=== PATIENT | female | born 1935 | race Caucasian/White ===

== ENCOUNTER 2019-06-29 16:19 | Outpatient (CLI) | payer MEDICARE, OTHER, SELFPAY ==
--- NOTE | 2019-06-29 16:33 | CTR_ITS ---
PROCEDURE INFORMATION: Exam: CT Neck With Contrast Exam date and time: 06/29/2019 4:34 PM Age: 83 years old Clinical indication: Neck pain; Additional info: Cervical lymphadenopathy, left sided neck discomfort x 1 week TECHNIQUE: Imaging protocol: Computed tomography images of the neck with intravenous contrast. Total DLP: 659.29 mGy-cm Radiation optimization: All CT scans at this facility use at least one of these dose optimization techniques: automated exposure control; mA and/or kV adjustment per patient size (includes targeted exams where dose is matched to clinical indication); or iterative reconstruction. Contrast material: OMNIPAQUE 300; Contrast volume: 95 ml; Contrast route: ARM; COMPARISON: No relevant prior studies available. FINDINGS: Brain: The industrial equipment wirer space is normal. Visualized portions of the brain and orbits are normal. Nasopharynx: fossa of Rosenmuller is normal. Oropharynx: parapharyngeal space normal. Hypopharynx: Piriform sinus is unremarkable. Larynx: the epiglottis, preepiglottic fat and the aryepiglottic folds are normal. The true cords appear normal. Retropharyngeal space: Unremarkable. Submandibular/Parotid glands: submental and submandibular regions are normal. the carotid and parotid spaces are normal. Thyroid: the thyroid gland, the thoracic inlet, the posterior triangles are normal. Lymph nodes: Unremarkable. No lymphadenopathy. Trachea: Visualized trachea is unremarkable. Lungs: The lung apices are normal. Vasculature: Calcification of the aorta. There is bovine origin of the right common carotid artery and the left common carotid artery-this is a normal variant. Calcifications at the carotid bifurcations bilaterally. Bones/joints: No acute osseous abnormality. Severe degenerative changes within the spine. Soft tissues: Unremarkable. No significant soft tissue swelling. Other findings: precervical space is normal. CT/CT neck w con* [id number] IMPRESSION: 1. Unremarkable CT scan of the neck. 2. Calcifications at the carotid bifurcations bilaterally. 3. Severe degenerative changes within the spine. Radiation Dose CTDIVOL = (mGy): DLP = 659.29 (mGy-cm)
[2019-06-29 17:08] LABS: Blood Urea Nitrogen 16 mg/dL (8-23)
[2019-06-29] MEDS: iohexol 300 mg/mL 100 mL Btl IV (17:27)
== END 2019-06-29 16:20 | disposition home or self-care (01) ==
LOC: RAD 16:24
PROVIDERS: Family Provider Family Medicine; PCP Family Medicine; Visit Provider Family Medicine
DX: R59.0 Localized enlarged lymph nodes (principal); I65.23 Occlusion and stenosis of bilateral carotid arteries
CPT/HCPCS: 36415; 70491; 82565; 84520

== ENCOUNTER 2020-08-06 10:28 | Outpatient (CLI) | payer MEDICARE, OTHER, SELFPAY ==
--- NOTE | 2020-08-06 10:42 | CT_ITS ---
WS: [id number] CTA OF THE CHEST WITH PULMONARY EMBOLISM PROTOCOL TECHNIQUE: High-resolution contrast enhanced CTA of the chest with coronal and sagittal reformatted i mages with pulmonary embolism protocol. MIP images are also reviewed. CLINICAL INFORMATION: DYSPNEA, CHEST PAIN COMPARISON: None. DLP: 714.[address] scans at [facility] use at least one of these dose optimization techniques: automat ed exposure control; mA and/or kV adjustment per patient size (includes targeted exams where dose is matched to clinical indication); or iterative reconstruction. FINDINGS: Proximal main pulmonary arteries are patent. Normal segmental and subsegmental pulmonary arteries. No evidence of pulmonary embolus. Normal caliber thoracic aorta. Aortic calcification. No mediastinal or hilar lymphadenopathy. Coronar y calcification. Mild chronic emphysematous changes. No acute pulmonary infiltrates. No focal consolidation or pleural fluid. Adrenal glands are normal. Small esophageal hiatal hernia. Mild thoracic curve and thoracic kyphosis. Anterior hypertrophic changes in the mid lower thoracic sp ine. Mild chronic appearing compression superior endplate at T12. CT/CT angio chest PE protcl [id number] IMPRESSION: 1. Proximal main pulmonary arteries are normal. No evidence of pulmonary embol us. 2. Mild chronic emphysematous changes. No acute pulmonary infiltrates. No foca l pneumonia. 3. No mediastinal or hilar lymphadenopathy. 4. Small esophageal hiatal hernia. 5. Mild chronic appearing compression superior endplate T12 Notified Dr. Bee's nurse, Megan MAKI, at 08/06/2020 11:32 AM.
[2020-08-06] MEDS: iohexol 350 mg/mL 100 mL Btl IV (10:57)
== END 2020-08-06 10:29 | disposition home or self-care (01) ==
LOC: RADWPI 10:40
PROVIDERS: PCP Family Medicine; Visit Provider Family Medicine
DX: R06.00 Dyspnea, unspecified (principal); R07.9 Chest pain, unspecified; S22.080A Wedge compression fracture of T11-T12 vertebra, initial encounter for closed fracture; X58.XXXA Exposure to other specified factors, initial encounter; K44.9 Diaphragmatic hernia without obstruction or gangrene
CPT/HCPCS: 71275; Q9967

== ENCOUNTER 2020-08-15 14:09 | Outpatient (CLI) | payer MEDICARE, OTHER, SELFPAY ==
--- NOTE | 2020-08-15 14:18 | USCV_ITS ---
RellEvonne Age: 84 Gender: F : 1935 Exam Date: 08/15/2020 14:42 Ordering Phys: Danilo Bee MD Technologist: Anju Alexander [place] [facility] [place]: ISCHEMIC HEART DZ BP: / HR: 77 Rhythm: Sinus Technical Quality: Adequate MEASUREMENTS (Male / Female) Normal Values 2D ECHO LV Diastolic Diameter PLAX 4.2 cm 4.2 - 5.9 / 3.9 - 5.3 cm LV Systolic Diameter PLAX 2.7 cm LV Chamber Size 3.7 cm IVS Diastolic Thickness 0.9 cm 0.6 - 1.0 / 0.6 - 0.9 cm IVS Systolic Thickness 1.5 cm LVPW Diastolic Thickness 1.7 cm 0.6 - 1.0 / 0.6 - 0.9 cm LVPW Systolic Thickness 2.2 cm RV Chamber Size 3.6 cm LVOT Diameter 2.0 cm LV Ejection Fraction 2D Teich 66.5 % LV Ejection Fraction MOD 2C 55.0 % LV Ejection Fraction 2C AL 59.0 % LA Diameter 3.3 cm LA Width 3.2 cm LA Height 4.1 cm RA Width 2.5 cm RA Height 4.1 cm Aorta at Sinotubular Diameter 2.5 cm M-MODE LV Diastolic Diameter MM 4.2 cm 4.2 - 5.9 / 3.9 - 5.3 cm LV Systolic Diameter MM 2.4 cm LV Ejection Fraction MM Teich 75.0 % IVS Diastolic Thickness MM 1.0 cm 0.6 - 1.0 / 0.6 - 0.9 cm IVS Systolic Thickness MM 0.9 cm LVPW Diastolic Thickness MM 0.8 cm 0.6 - 1.0 / 0.6 - 0.9 cm LVPW Systolic Thickness MM 1.2 cm Aortic Annulus Diameter 3.1 cm LA Ao Ratio MM 1.1 MV E Point Septal Separation 0.7 cm DOPPLER AV Peak Velocity 127.3 cm/s LVOT Peak Velocity 108.0 cm/s AV Area Cont Eq vti 2.5 cm squared AV Area Cont Eq pk 2.7 cm squared MV Area PHT 3.7 cm squared Mitral E to A Ratio 1.0 MV E' Velocity 88.0 cm/s TR Peak Velocity 321.9 cm/s TR Peak Gradient 41.5 mmHg TR Mean Velocity 197.8 cm/s TR Mean Gradient 19.5 mmHg TR Velocity Time Integral 98.9 cm TV Peak E Velocity 53.0 cm/s Right Atrial Pressure 3.0 mmHg Pulmonary Artery Systolic Pressu 44.5 mmHg PV Peak Velocity 69.0 cm/s RV Acceleration Time 0.1 s RV Ejection Time 0.4 s RV AcT/ET 0.4 FINDINGS Left Ventricle Normal left ventricular size minimally diminished LV ejection fraction of 50 to 55%. Mild hypokinesia of the septum and anteroseptal segments. Grade I/IV diastolic dysfunction (abnormal relaxation filling pattern), normal to mildly elevated filling pressures. Right Ventricle The right ventricle is normal in size and function. Right Atrium The right atrium is normal in size. Left Atrium The left atrium is normal in size. Mitral Valve Trace mitral valve regurgitation. Aortic Valve Thickened aortic valve. Tricuspid Valve Moderate tricuspid valve regurgitation. Estimated pulmonary artery peak systolic pressure of 45 mmHg Pulmonic Valve Trace pulmonary valve regurgitation. Pericardium Normal pericardium without effusion. Aorta Normal ascending aorta dimension. CONCLUSIONS Normal left ventricular size minimally diminished LV ejection fraction of 50 to 55%. Mild hypokinesia of the septum and anteroseptal segments. Grade I/IV diastolic dysfunction (abnormal relaxation filling pattern), normal to mildly elevated filling pressures. Thickened aortic valve. Moderate tricuspid valve regurgitation. Estimated pulmonary artery peak systolic pressure of 45 mmHg. Trace mitral valve regurgitation. There is no pericardial effusion. There are no intracardiac masses. No previous study is available for comparison. Dr Aj Cool MD [facility] (Electronically Signed) Final Date: 16 August 2020 09:55 S
== END 2020-08-15 14:10 | disposition home or self-care (01) ==
LOC: US 14:12
PROVIDERS: PCP Family Medicine; Visit Provider Family Medicine
DX: Z13.6 Encounter for screening for cardiovascular disorders (principal); R00.1 Bradycardia, unspecified; R06.00 Dyspnea, unspecified; I25.9 Chronic ischemic heart disease, unspecified; I08.3 Combined rheumatic disorders of mitral, aortic and tricuspid valves
CPT/HCPCS: 93306

== ENCOUNTER 2021-04-01 14:22 | Outpatient (CLI) | payer MEDICARE, OTHER, SELFPAY ==
--- NOTE | 2021-04-01 14:37 | XR_ITS ---
WS: [id number] RIGHT HIP HISTORY: HIP JOINT PAIN, RIGHT COMPARISON: None available. Right hip: No acute fracture or dislocation. Mild narrowing of the RIGHT hip joint. Mild osteophytic ridging around the acetabulum. Irregularity along the cortex of the femoral head and the acetabulum f rom loss of cartilage. No destructive bone lesions. Numerous surgical sutures in the RIGHT pelvis. XR/XR hip RT 2-3V wo/w pel* [id number] IMPRESSION: 1. No hip fracture. 2. 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
== END 2021-04-01 14:23 | disposition home or self-care (01) ==
PROVIDERS: PCP Family Medicine; Visit Provider Clinical Nurse Specialist Adult Health
DX: M16.11 Unilateral primary osteoarthritis, right hip (principal)
CPT/HCPCS: 73502

== ENCOUNTER → 2021-10-22 14:24 | Outpatient (BNVA) | payer MEDICARE, SELFPAY | PROVIDERS: PCP Family Medicine; Visit Provider Family Medicine | DX: I10 Essential (primary) hypertension (principal) | CPT/HCPCS: 80048 ==

== ENCOUNTER → 2022-02-09 13:24 | Outpatient (BNVA) | payer MEDICARE, SELFPAY | PROVIDERS: PCP Family Medicine; Visit Provider Family Medicine | DX: E78.5 Hyperlipidemia, unspecified (principal); G47.33 Obstructive sleep apnea (adult) (pediatric); I10 Essential (primary) hypertension; I48.91 Unspecified atrial fibrillation; R42 Dizziness and giddiness; R53.83 Other fatigue | CPT/HCPCS: 80053; 80061; 81000; 82607; 83880; 85025; 86140; 87086 ==

== ENCOUNTER 2022-04-07 14:19 | Outpatient (CLI) | payer MEDICARE, SELFPAY ==
--- NOTE | 2022-04-07 14:43 | XRR_ITS ---
PROCEDURE INFORMATION: Exam: XR Bilateral Hips Exam date and time: 04/07/2022 2:48 PM Age: 86 years old Clinical indication: Pain and injury or trauma; Fall; Blunt trauma (contusions or hematomas); Bilateral; Hip pain; Injury date: 04/02/22; Patient HX: HX of uterine cancer and melanoma; Additional info: Hip and back pain TECHNIQUE: Imaging protocol: Radiologic exam of the bilateral hips. Views: 2 views of hips with pelvis when performed. COMPARISON: CR XR hip RT 2-3V wo/w pel* [id number] 04/01/2021 2:45 PM FINDINGS: Bones/joints: Negative for acute right hip bony abnormality No acute fracture. Soft tissues: Metallic surgical clips seen in the pelvis XR/XR hip BI 2V wo/w pel [id number] IMPRESSION: 1. No acute bone abnormality. 2. Metallic surgical clips in the pelvis
--- NOTE | 2022-04-07 14:43 | XRR_ITS ---
PROCEDURE INFORMATION: Exam: XR Lumbosacral Spine Exam date and time: 04/07/2022 2:48 PM Age: 86 years old Clinical indication: Pain and injury or trauma; Fall; Blunt trauma (contusions or hematomas); Low back pain; Injury date: 04/02/22; Patient HX: HX of uterine cancer and melanoma; Additional info: Hip and back pain TECHNIQUE: Imaging protocol: Radiologic exam of the lumbosacral spine. Views: 2 or 3 views. COMPARISON: CR XR hip RT 2-3V wo/w pel* [id number] 04/01/2021 2:45 PM FINDINGS: Bones/joints: There is osteopenia and osteoarthritis seen. A compression fracture is present involving the T12 vertebral body. No acute fracture. Mild lumbar dextroscoliosis. Soft tissues: Calcified abdominal aorta without aneurysm. Multiple surgical clips seen in the right and left pelvis. Evidence of cholecystectomy is also present. XR/XR lumbar spine 2-3V* [id number] IMPRESSION: 1. Lumbar osteopenia, osteoarthritis, T12 fracture, and dextroscoliosis 2. Surgical clips seen in the pelvis. 3. Calcified abdominal aorta without aneurysm 4. Otherwise No acute findings.
== END 2022-04-07 14:20 | disposition home or self-care (01) ==
PROVIDERS: PCP Family Medicine; Visit Provider Family Medicine
DX: M54.9 Dorsalgia, unspecified (principal); M85.88 Other specified disorders of bone density and structure, other site; M47.896 Other spondylosis, lumbar region; M25.552 Pain in left hip; M25.551 Pain in right hip
CPT/HCPCS: 72100; 73521

== ENCOUNTER → 2022-06-22 13:18 | Outpatient (BNVA) | payer MEDICARE, OTHER, SELFPAY | PROVIDERS: PCP Family Medicine; Visit Provider Internal Medicine | DX: I10 Essential (primary) hypertension (principal); G47.33 Obstructive sleep apnea (adult) (pediatric); E78.5 Hyperlipidemia, unspecified; I48.91 Unspecified atrial fibrillation | CPT/HCPCS: 99213 ==

== ENCOUNTER → 2023-06-22 13:10 | Outpatient (BNVA) | payer MEDICARE, OTHER, SELFPAY | PROVIDERS: PCP Family Medicine; Visit Provider Internal Medicine | DX: I10 Essential (primary) hypertension (principal); G47.33 Obstructive sleep apnea (adult) (pediatric); E78.5 Hyperlipidemia, unspecified; I48.91 Unspecified atrial fibrillation | CPT/HCPCS: 99214 ==

== ENCOUNTER → 2023-07-20 11:58 | Outpatient (BNVA) | payer MEDICARE, OTHER, SELFPAY | PROVIDERS: PCP Family Medicine; Visit Provider Family Medicine | DX: E55.9 Vitamin D deficiency, unspecified (principal); I10 Essential (primary) hypertension; E78.5 Hyperlipidemia, unspecified; E11.9 Type 2 diabetes mellitus without complications; I48.91 Unspecified atrial fibrillation | CPT/HCPCS: 80053; 80061; 82306; 82607; 83880; 84443; 85025 ==

== ENCOUNTER → 2024-06-20 13:16 | Outpatient (BNVA) | payer MEDICARE, SELFPAY | PROVIDERS: PCP Family Medicine; Visit Provider Internal Medicine | DX: I10 Essential (primary) hypertension (principal); G47.33 Obstructive sleep apnea (adult) (pediatric); E78.5 Hyperlipidemia, unspecified; I48.91 Unspecified atrial fibrillation | CPT/HCPCS: 99213 ==

== ENCOUNTER 2024-07-31 15:09 | Emergency (ER) | payer MEDICARE, SELFPAY ==
[2024-07-31] VITALS (7 sets, daily range): BP systolic 168–200; BP diastolic 73–100; PULSE 61–70; RESP 16–24; TEMP 36.4; O2SAT 92–97; BMI 25.6
--- NOTE | 2024-07-31 15:25 | XRR_ITS ---
PROCEDURE INFORMATION: Exam: XR Chest Exam date and time: 07/31/2024 3:48 PM Age: 88 years old Clinical indication: Cough and dyspnea; HX of uterine CA and melanoma; Additional info: Dyspnea/cough TECHNIQUE: Imaging protocol: Radiologic exam of the chest. Views: 1 view. COMPARISON: CT angio chest PE protcl [id number] 08/06/2020 10:54 AM FINDINGS: Lungs: Lungs are clear. Pleural spaces: There is no pleural effusion or pneumothorax. Heart/Mediastinum: Cardiomediastinal contours are unremarkable. Bones/joints: Bones are unremarkable. XR/XR chest 1V portable [id number] IMPRESSION: No acute findings.
--- NOTE | 2024-07-31 15:43 | ED_ITS ---
Documented by User: Rafy Calderon, 08/01/24 05:59 HPI - Chest Pain 2 General: Chief Complaint: Chest Pain Stated Complaint: chest pain, high bp, dr sent Time Seen by Provider: 07/31/24 15:25 History of Present Illness: 88-year-old female presents emergency ro om with complaint of chest heaviness and shortness of breath she has noticed anything exacerbates or relieves it. She has been very active she does not necessarily get it associated with activity her blood pressure is elevated as well she is taking all of her regular medications has not missed any of her medicines recently or had any medication changes. Several years ago patient had a cardiac cath but it was normal this was proximately 15 years ago. She was given a single nitro at her doctor's office with transiently lowered her blood pressure did not particularly improve her chest heaviness. No hemoptysis no shortness of breath. Associated symptoms: Deny abdominal pain, dyspnea or fever(s) Related Data Home Medications ?Medication ?Instructions ?Recorded ?Confirmed aspirin 81 mg tablet,delayed 81 mg PO DAILY 06/19/19 0 07/31/24 release (Adult Low Dose Aspirin) glucosamine HCl 1,500 mg tablet 1,500 mg PO DAILY 11/0207/31/24 amlodipine 5 mg tablet 5 mg PO DAILY 07/31/2407/31 diphenhydramine HCl 25 mg tablet 12.5 mg PO BEDTIME DE N Sleep 07/31/24 07/31/24 (Benadryl Allergy) propranolol 40 mg tablet 40 mg PO BID 07/31/24 Previous Rx's ?Medication ?Instructions ?Recorded C-pap at 8cm H2) #1 ea 02/09/22 Allergies Allergy/AdvReac Type Severity Reaction Status Date / Time pravastatin (From Pravachol) Allergy muscle Verified 07/31/24 15:16 cramps alendronate sodium (From AdvReac Intermediate Unknown Verified 07/31/24 15:16 Fosamax) fluticasone (From Advair AdvReac Intermediate depression Verified 07/31/24 15:16 Diskus) hydrochlorothiazide (From AdvReac Intermediate chest pain Verified 07/31/24 15:16 Hyzaar) losartan (From Hyzaar) AdvReac Intermediate chest pain Verified 07/31/24 15:16 salmeterol (From Advair AdvReac Intermediate depression Verified 07/31/24 15:16 Diskus) Review of Systems 2 Const: Denies: fever(s) or chills Card: Reports: chest pain (Venous); Denies: edema, swelling of feet/ankles, dyspnea on exertion or orthopnea Resp: Denies: dyspnea GI: Denies: abdominal pain : Denies: dysuria, urinary frequency or urinary urgency Musc: Denies: neck pain or back pain Skin/Breast: Denies: rash PFSH ED 2 PFSH: Medical History Hypertension IVONNE (obstructive sleep apnea) Dyslipidemia Family History Mother Hypertension Social History Smoking and tobacco/nicotine status: unknown if used tobacco/nicotine Alcohol intake: never Substance/Drug Use: never Lives independently: Yes Marital status: / Current occupational status: retired Pets and animals: Yes (MOHAWK HENSON) Physical Exam 2 Const: COMMON NORMALS: no acute distress GENERAL APPEARANCE: cooperative and comfortable ORIENTATION/CONSCIOUSNESS: Yes awake, Yes oriented to person, Yes oriented to place and Yes oriented to time HENMT: COMMON NORMALS: normocephalic, atraumatic and hearing grossly normal bilaterally HEAD & SCALP: normocephalic and atraumatic Resp: COMMON NORMALS: normal respiratory effort, No retractions, No use of accessory muscles and clear to auscultation bilaterally AUSCULTATION: clear to auscultation bilaterally Cardio: COMMON NORMALS: regular rate, regular rhythm and No murmurs present (Cardio) RATE: regular rate RHYTHM: regular rhythm GI: COMMON NORMALS: Soft to palpation and No hepatosplenomegaly present A USCULTATION: Yes normoactive bowel sounds PALPATION: Yes Soft to palpation, No Tenderness to palpation present (GI), No Guarding due to palpation present (GI) and Yes No hepatosplenomegaly present Extremity: COMMON NORMALS: normal to inspection, capillary refill normal, no clubbing, cyanosis or edema, no calf tenderness and no pedal edema Neuro: SENSORIUM/ORIENTATION: Yes oriented to person, Yes oriented to place and Yes oriented to time Skin: COMMON NORMALS: no rashes or lesions noted GENERAL SKIN EXAM: no rashes or lesions noted Course 2 Vital Signs: Vital signs: Vital Signs Temperature 97.6 F 07/31/24 15:10 Pulse Rate 61 07/31/24 18:17 Respiratory Rate 24 H 07/31/24 18:17 Blood Pressure 168/100 07/31/24 18:17 Pulse Oximetry 95 07/31/24 18:17 Oxygen Delivery Me thod Room Air 07/31/24 15:10 MDM - Chest Pain Medical Decision Making Care signed out to Dr. Davis at change of shift. See final notes for diagnosis and disposition. Patient care transitioned me at shift change. Awaiting final cardiac markers. She presented with chest pain and some mild shortness of breath. Was sent by primary for cardiac workup. Serial troponins are negative. Chest x-ray is negative. Assessment and plan: Noncardiac chest pain - Discharged home - Discussed plan with patient. Answered any questions. - Evaluation and treatment of this problem were appropriate in the emergency setting. Lab Data 07/31/24 15:29 07/31/24 15:29 Radiology Impressions Chest X-Ray 07/31/24 15:25 IMPRESSION: No acute findings. Laboratory Results WBC 5.92 10^3/uL (3.29-11.43) 07/31/24 15: RBC 4.56 10^6/uL (3.85-5.65) 07/31/24 15:29 Hgb 13.60 g/dL (11.27-16.99) 07/31/24 15: Hct 41.4 % (36-47) 07/31/24 15: MCV 90.8 fl (85-98) 07/31/24 15: MCH 29.8 pg (27-33) 07/31/24 15: MCHC 32.9 g/dL (30-55) 07/31/24 15: RDW 13.9 % (12.1-15.1) 07/31/24 15: Plt Count 245 10^3/cmm (157-399) 07/31/24 15: MPV 10.6 fL (7.4-10.4) H 07/31/24 15: Neut % (Auto) 61.7 % 07/31/24 15: Lymph % (Auto) 26.0 % 07/31/24 15: [place] % (Auto) 8.8 % 07/31/24 15: Eos % (Auto) 2.2 % 07/31/24 15: Baso % (Auto) 1.0 % 07/31/24 15: Neut # (Auto) 3.65 10^3/uL (1.8-7.7) 07/31/24: Lymph # (Auto) 1.5 10^3/uL (0.8-4.8) 07/31/24 15: [place] # (Auto) 0.5 10^3/uL (0.2-0.9) 07/31/24: Eos # (Auto) 0.1 10^3/uL (0.0-0.8) 07/31/24: Baso # (Auto) 0.1 10^3/uL (0.0-0.1) 07/31/24: Nucleated RBC % (auto) 0 % 07/31/24: Nucleated RBCs # 0.0 /100WBC 07/31/24 15: Sodium 137 mmol/L (136-145) 07/31/24: Potassium 4.4 mmol/L (3.5-5.1) 07/31/24: Chloride 100 mmol/L (98-107) 07/31/24: Carbon Dioxide 26 mmol/L (22-29) 07/31/24: Anion Gap 15.4 (5-19) 07/31/24 15: BUN 16 mg/dL (8-23) 07/31/24 15: Creatinine 0.7 mg/dL (0.5-0.9) 07/31/24 15: GFR Calculation Not Reportable 07/31/24: Glucose 101 mg/dL (65-115) 07/31/24 Calculated Osmolality 285 mOsm/kg (285-295) 07/31/24: Calcium 9.1 mg/dL (8.5-10.5) 07/31/24 15: Total Bilirubin 0.3 mg/dL (0.15-1.2) 07/31/24 15: AST 22 U/L (0-32) 07/31/24 15: ALT 17 U/L (0-33) 07/31/24 15:29 Alkaline Phosphatase 75 U/L (35-105) 07/31/24 15: Troponin T Baseline < 6 ng/L (0-10) 07/31/24 15:29 Troponin T 120 Minute 8.90 ng/L (0-10) 07/31/24 17:28 Delta Troponin T 2.16796 ABS# (0-10) 07/31/24 17:28 Total Protein 7.2 g/dL (6.6-8.7) 07/31/24 15: Albumin 4.5 g/dL (3.5-5.2) 07/31/24 15: Globulin 2.7 g/dL (1.3-4.6) 07/31/24 15: Urine Color Yellow (Yellow) 07/31/24 16:22 Urine Appearance Clear (CLEAR) 07/31/24 16:22 Urine pH 8.0 (5-7) A 07/31/24 16:22 Ur Specific Colt 1.007 (1.005-1.030) 07/31/24 16:22 Urine Protein Negative (Negative) 07/31/24 16:22 Urine Glucose (UA) Negative (Normal) 07/31/24 16:22 Urine Ketones Negative (Negative) 07/31/24 16:22 Urine Blood Negative (Negative) 07/31/24 16:22 Urine Nitrate Negative (Negative) 07/31/24 16:22 Urine Bilirubin Negative (Negative) 07/31/24 16:22 Urine Urobilinogen 0.2 mg/dL (Negative) 07/31/24 16:22 Ur Leukocyte Esterase Negative (Negative) 07/31/24 16:22 Urine RBC 0-2 /hpf (0-2) 07/31/24 16:22 Urine WBC 0-5 /hpf (0-5) 07/31/24 16:22 Ur Squamous Epith Cells 0-5 /hpf (0-5) 07/31/24 16:22 Amorphous Sediment Not Reportable 07/31/24 16:22 Urine Bacteria 1+ /hpf (NONE) H 07/31/24 16:22 Hyaline Casts 0.40 /lpf 07/31/24 16:22 Discharge Plan Discharge Patient Disposition: Home Clinical Impression: Non-cardiac chest pain Condition: Stable Prescriptions: No Action aspirin [Adult Low Dose Aspirin] 81 mg tablet,delayed release (DR/EC) 81 mg PO DAILY glucosamine HCl 1,500 mg tablet 1,500 mg PO DAILY (DME) C-pap at 8cm H2) See Rx Instructions .Route .MEDSUPPLY Qty: 1 0RF Rx Instructions: please provide mask and equipment as needed. She needs to restart C-pap at previous setting. She is symptomatic. diphenhydramine HCl [Benadryl Allergy] 25 mg Tablet 12.5 mg PO BEDTIME PRN (Reason: Sleep) amlodipine 5 mg tablet 5 mg PO DAILY propranolol 40 mg tablet 40 mg PO BID Discharge Orders: Discharge ED (Routine); Ordered 07/31/24 Ordered By: Sulma Davis Referrals: Danilo Bee MD [Primary Care Provider] - Discharge Diet: Usual diet Discharge Activity: Increase activity as tolerated Patient Instructions: Noncardiac Chest Pain (ED), Opioid Safety, Pain Management Activity Restrictions/Additional Instructions: Thank you for choosing [facility] for your healthcare needs today. Please realize this is an emergency room and that we are providing you with a medical screening exam and this may not be complete and all inclusive of all the testing and or work up that you may need to determine your ailment or severity of your illness. You have been screened and evaluated and felt safe for discharge. Health conditions do change or evolve sometimes and as such it is important that you follow up with your Primary Doctor to be re checked, 3-5 days is a general good time frame for follow up. You are always welcome to return to the ED for re assessment if your symptoms are worsening or you have new concerns Print Language: Bahamian Coding Level of Care Code ED Media Clerk for [employer] Documented by User: Sulma Davis MD 07/31/24 18:05 HPI - Chest Pain 2 General: Chief Complaint: Chest Pain Stated Complaint: chest pain, high bp, dr sent Time Seen by Provider: 07/31/24 15:25 Related Data Home Medications ?Medication ?Instructions ?Recorded ?Confirmed aspirin 81 mg tablet,delayed 81 mg PO DAILY 06/19/19 0 07/31/24 release (Adult Low Dose Aspirin) glucosamine HCl 1,500 mg tablet 1,500 mg PO DAILY 11/0207/31/24 amlodipine 5 mg tablet 5 mg PO DAILY 07/31/2407/31 diphenhydramine HCl 25 mg tablet 12.5 mg PO BEDTIME DE N Sleep 07/31/24 07/31/24 (Benadryl Allergy) propranolol 40 mg tablet 40 mg PO BID 07/31/24 Previous Rx's ?Medication ?Instructions ?Recorded C-pap at 8cm H2) #1 ea 02/09/22 Allergies Allergy/AdvReac Type Severity Reaction Status Date / Time pravastatin (From Pravachol) Allergy muscle Verified 07/31/24 15:16 cramps alendronate sodium (From AdvReac Intermediate Unknown Verified 07/31/24 15:16 Fosamax) fluticasone (From Advair AdvReac Intermediate depression Verified 07/31/24 15:16 Diskus) hydrochlorothiazide (From AdvReac Intermediate chest pain Verified 07/31/24 15:16 Hyzaar) losartan (From Hyzaar) AdvReac Intermediate chest pain Verified 07/31/24 15:16 salmeterol (From Advair AdvReac Intermediate depression Verified 07/31/24 15:16 Diskus) PFSH ED 2 PFSH: Medical History Hypertension IVONNE (obstructive sleep apnea) Dyslipidemia Family History Mother Hypertension Social History Smoking and tobacco/nicotine status: unknown if used tobacco/nicotine Alcohol intake: never Substance/Drug Use: never Lives independently: Yes Marital status: / Current occupational status: retired Pets and animals: Yes ([employer]HAWK HENSON) Course 2 Vital Signs: Vital signs: Vital Signs Temperature 97.6 F 07/31/24 15:10 Pulse Rate 61 07/31/24 18:17 Respiratory Rate 24 H 07/31/24 18:17 Blood Pressure 168/100 07/31/24 18:17 Pulse Oximetry 95 07/31/24 18:17 Oxygen Delivery Me thod Room Air 07/31/24 15:10 MDM - Chest Pain Medical Decision Making Patient care transitioned me at shift change. Awaiting final cardiac markers. She presented with chest pain and some mild shortness of breath. Was sent by primary for cardiac workup. Serial troponins are negative. Chest x-ray is negative. Assessment and plan: Noncardiac chest pain - Discharged home - Discussed plan with patient. Answered any questions. - Evaluation and treatment of this problem were appropriate in the emergency setting. Lab Data 07/31/24 15:29 07/31/24 15:29 Radiology Impressions Chest X-Ray 07/31/24 15: IMPRESSION: No acute findings. Laboratory Results WBC 5.92 10^3/uL (3.29-11.43) 07/31/24 15: RBC 4.56 10^6/uL (3.85-5.65) 07/31/24 15: Hgb 13.60 g/dL (11.27-16.99) 07/31/24 15: Hct 41.4 % (36-47) 07/31/24 15: MCV 90.8 fl (85-98) 07/31/24 15: MCH 29.8 pg (27-33) 07/31/24 15: MCHC 32.9 g/dL (30-55) 07/31/24 15: RDW 13.9 % (12.1-15.1) 07/31/24 15: Plt Count 245 10^3/cmm (157-399) 07/31/24 15: MPV 10.6 fL (7.4-10.4) H 07/31/24 15: Neut % (Auto) 61.7 % 07/31/24 15: Lymph % (Auto) 26.0 % 07/31/24 15:29 [place] % (Auto) 8.8 % 07/31/24 15: Eos % (Auto) 2.2 % 07/31/24 15: Baso % (Auto) 1.0 % 07/31/24 15: Neut # (Auto) 3.65 10^3/uL (1.8-7.7) 07/31/24 15: Lymph # (Auto) 1.5 10^3/uL (0.8-4.8) 07/31/24 15: [place] # (Auto) 0.5 10^3/uL (0.2-0.9) 07/31/24 15: Eos # (Auto) 0.1 10^3/uL (0.0-0.8) 07/31/24 15: Baso # (Auto) 0.1 10^3/uL (0.0-0.1) 07/31/24 15: Nucleated RBC % (auto) 0 % 07/31/24 15: Nucleated RBCs # 0.0 /100WBC 07/31/24 15: Sodium 137 mmol/L (136-145) 07/31/24 15: Potassium 4.4 mmol/L (3.5-5.1) 07/31/24: Chloride 100 mmol/L (98-107) 07/31/24 15: Carbon Dioxide 26 mmol/L (22-29) 07/31/24 15: Anion Gap 15.4 (5-19) 07/31/24 15: BUN 16 mg/dL (8-23) 07/31/24 15: Creatinine 0.7 mg/dL (0.5-0.9) 07/31/24 15: GFR Calculation Not Reportable 07/31/24 15: Glucose 101 mg/dL (65-115) 07/31/24 15: Calculated Osmolality 285 mOsm/kg (285-295) 07/31/24 15: Calcium 9.1 mg/dL (8.5-10.5) 07/31/24 15: Total Bilirubin 0.3 mg/dL (0.15-1.2) 07/31/24 15: AST 22 U/L (0-32) 07/31/24 15: ALT 17 U/L (0-33) 07/31/24 15: Alkaline Phosphatase 75 U/L (35-105) 07/31/24 15: Troponin T Baseline < 6 ng/L (0-10) 07/31/24 15: Troponin T 120 Minute 8.90 ng/L (0-10) 07/31/24 17:28 Delta Troponin T 2.09165 ABS# (0-10) 07/31/24 17:28 Total Protein 7.2 g/dL (6.6-8.7) 07/31/24 15:29 Albumin 4.5 g/dL (3.5-5.2) 07/31/24 15: Globulin 2.7 g/dL (1.3-4.6) 07/31/24 15:29 Urine Color Yellow (Yellow) 07/31/24 16:22 Urine Appearance Clear (CLEAR) 07/31/24 16:22 Urine pH 8.0 (5-7) A 07/31/24 16:22 Ur Specific Colt 1.007 (1.005-1.030) 07/31/24 16:22 Urine Protein Negative (Negative) 07/31/24 16:22 Urine Glucose (UA) Negative (Normal) 07/31/24 16:22 Urine Ketones Negative (Negative) 07/31/24 16:22 Urine Blood Negative (Negative) 07/31/24 16:22 Urine Nitrate Negative (Negative) 07/31/24 16:22 Urine Bilirubin Negative (Negative) 07/31/24 16:22 Urine Urobilinogen 0.2 mg/dL (Negative) 07/31/24 16:22 Ur Leukocyte Esterase Negative (Negative) 07/31/24 16:22 Urine RBC 0-2 /hpf (0-2) 07/31/24 16:22 Urine WBC 0-5 /hpf (0-5) 07/31/24 16:22 Ur Squamous Epith Cells 0-5 /hpf (0-5) 07/31/24 16:22 Amorphous Sediment Not Reportable 07/31/24 16:22 Urine Bacteria 1+ /hpf (NONE) H 07/31/24 16:22 Hyaline Casts 0.40 /lpf 07/31/24 16:22 All radiology interpretation(s) finalized by discharge Discharge Plan Discharge Patient Disposition: Home Clinical Impression: Non-cardiac chest pain Condition: Stable Prescriptions: No Action aspirin [Adult Low Dose Aspirin] 81 mg tablet,delayed release (DR/EC) 81 mg PO DAILY glucosamine HCl 1,500 mg tablet 1,500 mg PO DAILY (DME) C-pap at 8cm H2) See Rx Instructions .Route .MEDSUPPLY Qty: 1 0RF Rx Instructions: please provide mask and equipment as needed. She needs to restart C-pap at previous setting. She is symptomatic. diphenhydramine HCl [Benadryl Allergy] 25 mg Tablet 12.5 mg PO BEDTIME PRN (Reason: Sleep) amlodipine 5 mg tablet 5 mg PO DAILY propranolol 40 mg tablet 40 mg PO BID Discharge Orders: Discharge ED (Routine); Ordered 07/31/24 Ordered By: Sulma Davis Referrals: Danilo Bee MD [Primary Care Provider] - Discharge Diet: Usual diet Discharge Activity: Increase activity as tolerated Patient Instructions: Noncardiac Chest Pain (ED), Opioid Safety, Pain Management Activity Restrictions/Additional Instructions: Thank you for choosing [facility] for your healthcare needs today. Please realize this is an emergency room and that we are providing you with a medical screening exam and this may not be complete and all inclusive of all the testing and or work up that you may need to determine your ailment or severity of your illness. You have been screened and evaluated and felt safe for discharge. Health conditions do change or evolve sometimes and as such it is important that you follow up with your Primary Doctor to be re checked, 3-5 days is a general good time frame for follow up. You are always welcome to return to the ED for re assessment if your symptoms are worsening or you have new concerns Print Language: Bahamian Coding Level of Care Code ED Media Clerk for [place]
[2024-07-31 15:46] LABS: Basophils # 0.1 10^3/uL (0.0-0.1); Eosinophils # 0.1 10^3/uL (0.0-0.8); Eosinophils % 2.2 %; Hematocrit 41.4 % (36-47); Lymphocytes # 1.5 10^3/uL (0.8-4.8); Mean Corpuscular HGB Conc 32.9 g/dL (30-55); Mean Corpuscular Hemoglobin 29.8 pg (27-33); Mean Corpuscular Volume 90.8 fl (85-98); Mean Platelet Volume 10.6 fL (7.4-10.4); Monocytes # 0.5 10^3/uL (0.2-0.9); Monocytes % 8.8 %; Neutrophils # 3.65 10^3/uL (1.8-7.7); Neutrophils % 61.7 %; Nucleated Red Blood Cells % 0 %; Platelet Count 245 10^3/cmm (157-399); Red Blood Count 4.56 10^6/uL (3.85-5.65); Red Cell Distribution Width 13.9 % (12.1-15.1); White Blood Count 5.92 10^3/uL (3.29-11.43)
--- NOTE | 2024-07-31 15:48 | ECG_ITS ---
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 Measurements Intervals [place] Rate: 74 P: 54 HI: 167 QRS: -20 QRSD: 85 T: 40 QT: 368 QTc: 411 Interpretive Statements SINUS RHYTHM WITH OCCASIONAL VENTRICULAR PREMATURE COMPLEXES MODERATE VOLTAGE CRITERIA FOR LVH, CONSIDER NORMAL VARIANT [MEETS CRITERIA IN ONE OF: R(aVL), S(V1), R(V5), R(V5/V6)+S(V1)] POSSIBLE ANTERIOR MYOCARDIAL INFARCTION , PROBABLY OLD [30 ms Q WAVE IN V3/V4, OR R < 0.2 mV IN V4] Compared to ECG 01/04/2018 02:36:43 Ventricular premature complex(es) now present Myocardial infarct finding now present Electronically Signed On 07-31-2024 19:16:45 CDT by Aj Cool M.D. [email or web address]
[2024-07-31 15:56] LABS: Alanine Aminotransferase 17 U/L (0-33); Albumin Level 4.5 g/dL (3.5-5.2); Alkaline Phosphatase 75 U/L (35-105); Anion Gap 15.4 (5-19); Aspartate Amino Transferase 22 U/L (0-32); Blood Urea Nitrogen 16 mg/dL (8-23); Calcium 9.1 mg/dL (8.5-10.5); Carbon Dioxide 26 mmol/L (22-29); Chloride 100 mmol/L (98-107); Creatinine Clr Calc Pharmacy 44.1956; Globulin 2.7 g/dL (1.3-4.6); Glucose 101 mg/dL (65-115); Osmolality Calculated 285 mOsm/kg (285-295); Potassium 4.4 mmol/L (3.5-5.1); Sodium 137 mmol/L (136-145); Total Bilirubin 0.3 mg/dL (0.15-1.2); Total Protein 7.2 g/dL (6.6-8.7)
[2024-07-31 16:49] LABS: Bilirubin Urine Negative (Negative); Blood Urine Negative (Negative); Glucose Urine UA Negative (Normal); Ketones Urine Negative (Negative); Leukocyte Esterase Urine Negative (Negative); Nitrate Urine Negative (Negative); Protein Urine Negative (Negative); Specific Gravity, Urine 1.007 (1.005-1.030); Urine Appearance Clear (CLEAR); Urine Color Yellow (Yellow); Urobilinogen Urine 0.2 mg/dL (Negative)
[2024-07-31 16:52] LABS: Add Urine Microscopic? YES; Bacteria Urine 1+ /hpf; RBC Urine 0-2 /hpf (0-2); Squamous Epithelial Cell Urine 0-5 /hpf (0-5); WBC Urine 0-5 /hpf (0-5)
[2024-07-31 16:58] LABS: Troponin(5th) Baseline < 6 ng/L (0-10)
--- NOTE | 2024-07-31 17:48 | ECG_ITS ---
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 Measurements Intervals [place] Rate: 69 P: 78 CT: 186 QRS: -12 QRSD: 94 T: 31 QT: 403 QTc: 435 Interpretive Statements SINUS RHYTHM MINIMAL VOLTAGE CRITERIA FOR LVH, CONSIDER NORMAL VARIANT [MEETS CRITERIA IN ONE OF: R(aVL), S(V1), R(V5), R(V5/V6)+S(V1)] POSSIBLE ANTERIOR MYOCARDIAL INFARCTION , PROBABLY OLD [30 ms Q WAVE IN V3/V4, OR R < 0.2 mV IN V4] Compared to ECG 07/31/2024 15:13:57 Ventricular premature complex(es) no longer present Myocardial infarct finding still present Electronically Signed On 07-31-2024 19:23:12 CDT by Aj Cool M.D. [email or web address]
[2024-07-31 17:58] LABS: Troponin 5 2HR Delta 2.90001 ABS# (0-10)
== END 2024-07-31 18:18 | disposition home or self-care (01) ==
PROVIDERS: Family Medicine; Emergency Provider Emergency Medicine; PCP Family Medicine
DX: R07.89 Other chest pain (principal); Z79.82 Long term (current) use of aspirin; E78.5 Hyperlipidemia, unspecified; I10 Essential (primary) hypertension
CPT/HCPCS: 36415; 71045; 80053; 81001; 84484; 85025; 93005; 99285

== ENCOUNTER → 2024-08-07 08:22 | Outpatient (BNVA) | payer MEDICARE, SELFPAY | PROVIDERS: PCP Family Medicine; Visit Provider Family Medicine | DX: I10 Essential (primary) hypertension (principal); R53.83 Other fatigue; R07.9 Chest pain, unspecified | CPT/HCPCS: 81000; 85379; 86140; 87077; 87086; 87184 ==

== ENCOUNTER 2024-08-10 12:52 | Outpatient (CLI) | payer MEDICARE, SELFPAY ==
--- NOTE | 2024-08-10 13:00 | CT_ITS ---
WS: [id number] CT CHEST ANGIOGRAPHY WITH REFORMATS HISTORY: dyspnea/ pos D-dimer TECHNIQUE: Contiguous axial images are obtained through the chest during arterial injection of intravenous contrast. Images are reconstructed to evaluate the pulmonary arteries. MIP imaging also reviewed. All CT scans at [facility] use at least one of these dose optimization techniques: automated exposure control; mA and/or kV adjustment per patient size (includes targeted exams where dose is matched to clinical indication); or iterative reconstruction. CONTRAST: Omnipaque 350; 100 mL IV. DLP: 303.01 mGy.cm COMPARISON: 08/06/2020 Good opacification of the pulmonary artery. Very mildly dilated pulmonary artery. No filling defects in the proximal pulmonary arteries. There is very slight wall thickening involving subsegmental branch of the RIGHT lung base. Moderate atherosclerosis thoracic aorta without aneurysmal dilatation. Moderate cardiomegaly. Most significant enlargement involves the LEFT heart. LEFT heart has increased in size since 08/06/2020. No RIGHT heart strain. Mild interstitial edema. Scattered calcified granulomata. No pulmonary mass or pneumonia. No nodules. No pericardial effusion. Suprarenal aortic calcification. No adrenal mass. Prior cholecystectomy. Moderate sized hiatal hernia. Within the visualized colon diverticular Kalosis noted in the splenic flexure. Bones are diffusely osteopenic with advanced degenerative disc disease. T12 concave compression fracture stable. CT/CT angio chest PE protcl [id number] IMPRESSION: 1. No central or significant pulmonary emboli. 2. Slight wall thickening involving segmental branch of the RIGHT lower lobe p ulmonary artery at the lung base. This may be due to prior PE. This would not b e symptomatic. No acute pulmonary embolism. 3. Increasing LEFT heart size. Recent chest radiograph from 07/31/2024 demonstr ated normal cardiac silhouette. On today's localizer image the heart appears en larged. Enlargement predominantly involving the LEFT heart chambers. 4. Mild interstitial edema. 5. Moderate atherosclerosis thoracic aorta and suprarenal aorta. 6. Prior cholecystectomy. Notified Danilo Bee MD at 08/10/2024 2:35 PM.
[2024-08-10] MEDS: iohexol 350 mg/mL 500 mL Btl (per mL) IV (14:24)
== END 2024-08-10 12:53 | disposition home or self-care (01) ==
PROVIDERS: PCP Family Medicine; Visit Provider Family Medicine
DX: R79.89 Other specified abnormal findings of blood chemistry (principal); R07.9 Chest pain, unspecified; R91.8 Other nonspecific abnormal finding of lung field; I51.7 Cardiomegaly; J81.0 Acute pulmonary edema; I70.0 Atherosclerosis of aorta; Z90.49 Acquired absence of other specified parts of digestive tract; J84.10 Pulmonary fibrosis, unspecified; K44.9 Diaphragmatic hernia without obstruction or gangrene; R93.89 Abnormal findings on diagnostic imaging of other specified body structures; M85.80 Other specified disorders of bone density and structure, unspecified site; R93.7 Abnormal findings on diagnostic imaging of other parts of musculoskeletal system; M48.54XA Collapsed vertebra, not elsewhere classified, thoracic region, initial encounter for fracture
CPT/HCPCS: 71275

== ENCOUNTER 2024-09-17 11:46 | Outpatient (CLI) | payer MEDICARE, SELFPAY ==
--- NOTE | 2024-09-17 12:00 | USCV_ITS ---
Evonne Zacarias Age: 88 Gender: F : 1935 Exam Date: 09/17/2024 12:05 Ordering Phys: Danilo Bee MD Technologist: Exam Location: [facility] [place] Indication: cp BP: 180 / 80 HR: 64 Rhythm: Sinus Technical Quality: Adequate MEASUREMENTS (Male / Female) Normal Values 2D ECHO LV Diastolic Diameter PLAX 3.7 cm 4.2 - 5.9 / 3.9 - 5.3 cm IVS Diastolic Thickness 1.1 cm 0.6 - 1.0 / 0.6 - 0.9 cm IVS Systolic Thickness 1.7 cm LVPW Diastolic Thickness 1.2 cm 0.6 - 1.0 / 0.6 - 0.9 cm LVPW Systolic Thickness 2.0 cm LVOT Diameter 2.0 cm LV Ejection Fraction 2D Teich 65.4 % LV Ejection Fraction MOD 4C 72.4 % LV Ejection Fraction MOD 2C 68.2 % LV Ejection Fraction 2C AL 68.4 % LA Diameter 3.8 cm RA Systolic Volume 4C AL 28.3 ml RA Systolic Volume 4C MOD 27.3 ml LA Sys Volume AL 66.9 cm cubed LA Sys Volume Index AL 39.6 cm cubed/m squared Aorta at Sinotubular Diameter 2.9 cm M-MODE LA Ao Ratio MM 1.4 AV Cusp Separation MM 2.4 cm DOPPLER AV Peak Velocity 117.0 cm/s LVOT Peak Velocity 85.0 cm/s AV Area Cont Eq vti 2.5 cm squared AV Area Cont Eq pk 2.3 cm squared MV Peak Velocity 115.0 cm/s MV Area PHT 3.5 cm squared Mitral E to A Ratio 0.8 TV Peak Velocity 282.0 cm/s TR Peak Velocity 288.0 cm/s TR Peak Gradient 33.2 mmHg TV Peak E Velocity 77.0 cm/s PV Peak Velocity 107.0 cm/s FINDINGS Left Ventricle Normal left ventricular size and systolic function, EF 68%.. No regional wall motion abnormalities. Mild left ventricular hypertrophy. Grade I/IV diastolic dysfunction (abnormal relaxation filling pattern), normal to mildly elevated filling pressures. Right Ventricle The right ventricle is normal in size and function. Right Atrium The right atrium is normal in size. Left Atrium Moderately increased left atrial size. Mitral Valve Mild mitral valve regurgitation. Aortic Valve Thickened aortic valve. Tricuspid Valve [id number]-[id number] tricuspid valve regurgitation. Estimated pulmonary artery peak systolic pressure 33 mmHg Pulmonic Valve Trace pulmonary valve regurgitation. Pericardium No pericardial effusion. Aorta Plaque seen in the ascending aorta. IVC Inferior vena cava not visualized. CONCLUSIONS Normal left ventricular size and systolic function, EF 68%.. No regional wall motion abnormalities. Mild left ventricular hypertrophy. Grade I/IV diastolic dysfunction (abnormal relaxation filling pattern), normal to mildly elevated filling pressures. Moderately increased left atrial size. Mild mitral valve regurgitation. Thickened aortic valve. [id number]-ul-[id number] tricuspid valve regurgitation. Estimated pulmonary artery peak systolic pressure 33 mmHg. Trace pulmonary valve regurgitation. Compared to the study from 08/15/2020, the LV ejection fraction has improved. The PA pressure appears to be within normal limits Dr Aj Cool MD FACC (Electronically Signed) Final Date: 19 Sep 2024 22:53 S
== END 2024-09-17 11:47 | disposition home or self-care (01) ==
PROVIDERS: PCP Family Medicine; Visit Provider Family Medicine
DX: R07.9 Chest pain, unspecified (principal); R93.1 Abnormal findings on diagnostic imaging of heart and coronary circulation; I34.0 Nonrheumatic mitral (valve) insufficiency; I35.8 Other nonrheumatic aortic valve disorders; I07.1 Rheumatic tricuspid insufficiency; I70.0 Atherosclerosis of aorta
CPT/HCPCS: 93306